=== PATIENT | female | born 1950 | race African-American/Black ===

== ENCOUNTER 2018-12-12 06:54 | Inpatient (IN) | payer MEDICARE, MEDICAID ==
[~2018-12-12] VITALS: Ht 162.6 cm; Wt 72.6 kg
[2018-12-12 08:21] LABS: CLARITY URINE CLEAR (CLEAR); COLOR URINE YELLOW (YELLOW)
[2018-12-12 08:22] LABS: KETONES URINE NEGATIVE (NEGATIVE); LEUKOCYTE ESTERASE URINE NEGATIVE (NEGATIVE); NITRITE URINE NEGATIVE (NEGATIVE); OCCULT BLOOD URINE NEGATIVE (NEGATIVE); PROTEIN URINE NEGATIVE (NEGATIVE); SPECIFIC GRAVITY URINE 1.022 (1.005-1.030)
[2018-12-12 08:24] LABS: CHLORIDE 105 mEq/L (98-107)
[2018-12-12] MEDS: LACTATED RINGERS 1,000 ML IV SCH (08:24)
[2018-12-12 08:26] LABS: PARTIAL THROMBOPLASTIN TIME 25.2 sec (23.4-31.0); PROTHROMBIN TIME 10.2 sec (9.6-11.0)
[2018-12-12 08:27] LABS: BASOPHILS % 0.5 % (0.0-2.0); EOSINOPHILS % 1.8 % (0.0-5.0); HEMATOCRIT. 33.1 % (36.0-48.0); HEMOGLOBIN. 11.5 g/dL (12.0-16.0); LYMPHOCYTES % 20.1 % (20.0-50.0); MEAN CORPUSCULAR HEMOGLOBIN 31.7 pg (28.0-32.0); MEAN CORPUSCULAR VOLUME 91.5 fL (81.0-99.0); MEAN PLATELET VOLUME 7.8 fl (7.4-10.4); MONOCYTES % 7.6 % (2.0-8.0); PLATELET 235 x1000/uL (130-400); RED BLOOD CELL COUNT 3.62 mill/uL (4.2-5.4); RED CELL DISTRIBUTION WIDTH 13.5 % (11.6-14.6)
[2018-12-12] MEDS ORDERED: TRANEXAMIC ACID 1,000 MG in SODIUM CHLORIDE 0.9% 100 ML IV NR ×2 (08:45→10:15)
[2018-12-12] MEDS ORDERED: BENA40TA9 PO (08:47)
[2018-12-12] MEDS ORDERED: ATEN-42 PO (08:47)
[2018-12-12] MEDS ORDERED: AMLO5TAB88 PO (08:47)
[2018-12-12] MEDS ORDERED: HYDR25TA PO (08:47)
[2018-12-12] MEDS ORDERED: TRANEXAMIC ACID 1,000 MG/10 ML IV ONE (10:15)
[2018-12-12] MEDS ORDERED: MORPHINE SULFATE/PF 1MG/ML 10ML AMP ONE (10:18)
[2018-12-12] MEDS ORDERED: BUPIVACAINE/EPINEPH/PF 0.25%/0.0005 10ML ONE (10:18)
[2018-12-12] MEDS ORDERED: METHYLENE BLUE 50 MG/10 ML AMP IV ONE (10:18)
[2018-12-12] MEDS ORDERED: EPINEPHRINE 1:1000 1 MG/ML AMP ONE (10:19)
[2018-12-12] MEDS ORDERED: NORMAL SALINE 0.9% 10 ML SYR ONE (10:19)
[2018-12-12] MEDS ORDERED: VANCOMYCIN HCL 500 MG/VIAL ONE (10:19)
[2018-12-12] MEDS ORDERED: BACITRACIN 50,000 UNITS/VIAL ONE (10:19)
[2018-12-12] MEDS ORDERED: SODIUM CHLORIDE 0.9% IRRIG SOL 3,000 ML IR ONE (10:19)
[2018-12-12] MEDS ORDERED: GENTAMICIN SULF 40MG/ML 2ML VIAL ONE (10:20)
[2018-12-12] MEDS ORDERED: MENT118G TP (10:30)
[2018-12-12] MEDS ORDERED: MELO-105 PO (10:30)
[2018-12-12] MEDS ORDERED: LOVA20TA2 PO (10:30)
[2018-12-12] MEDS ORDERED: ASPI-1393 PO (10:30)
[2018-12-12] MEDS ORDERED: FENTANYL CITRATE/PF 50MCG/ML 2ML VIAL ONE (11:32)
[2018-12-12] MEDS ORDERED: PROPOFOL 200MG/20ML VIAL IV ONE (11:33)
[2018-12-12] MEDS ORDERED: GLYCOPYRROLATE 0.2 MG/ML 2ML VIAL ONE ×2 (11:33→15:27)
[2018-12-12] MEDS ORDERED: NEOSTIGMINE METHYLSULFATE 1MG/ML 10 ML VIAL ONE (11:33)
[2018-12-12] MEDS ORDERED: ROCURONIUM BROMIDE 10MG/ML VIAL 5ML IV ONE (11:33)
[2018-12-12] MEDS ORDERED: MIDAZOLAM HCL 2 MG/2 ML VIAL ONE (11:33)
[2018-12-12] MEDS ORDERED: DEXAMETHASONE 4MG/ML 1ML VIAL ONE (11:52)
[2018-12-12] MEDS ORDERED: SODIUM CHLORIDE 0.9% 10ML VIAL ONE (11:53)
[2018-12-12] MEDS ORDERED: CEFAZOLIN SODIUM 1000MG/VIAL ONE (11:53)
[2018-12-12] MEDS ORDERED: ONDANSETRON HCL 4MG/2ML INJ IV PRN ×2 (12:15→18:00)
[2018-12-12] MEDS ORDERED: HYDROMORPHONE HCL/PF 2MG/ML CPJ IV PRN (12:15)
[2018-12-12] MEDS ORDERED: LABETALOL 5MG/ML SYR 20 MG/4 ML SYRINGE IV PRN (12:15)
[2018-12-12] MEDS ORDERED: MEPERIDINE HCL/PF 25MG/ML CPJ IV PRN (12:15)
[2018-12-12] MEDS ORDERED: NALOXONE INJ IV PRN (17:34)
[2018-12-12] MEDS ORDERED: DIPHENHYDRAMINE INJ IV PRN (17:34)
[2018-12-12] MEDS ORDERED: HYDROMORPHONE PCA 10MG/50ML IV PRN (17:34)
[2018-12-12] MEDS ORDERED: ONDANSETRON INJ IV PRN (17:34)
[2018-12-12] MEDS ORDERED: MAGNESIUM HYDROXIDE 400MG/5ML 30ML UDC PO PRN (18:00)
[2018-12-12] MEDS ORDERED: HYDROCODONE/ACETAMINOPHEN 5/325MG TABLET PO PRN ×2 (18:00)
[2018-12-12 20:00] VITALS: BP 119/71
[2018-12-12] MEDS ORDERED: ZOLPIDEM TARTRATE 5MG TABLET PO PRN (21:00)
[2018-12-12] MEDS: CEFAZOLIN 2,000 MG in DEXT 5% WATER 100 ML IV SCH (23:58)
[2018-12-13 06:36] LABS: HEMATOCRIT. 27.7 % (36.0-48.0); HEMOGLOBIN. 9.5 g/dL (12.0-16.0); MEAN CORPUSCULAR HEMOGLOBIN 31.7 pg (28.0-32.0); MEAN CORPUSCULAR VOLUME 92.4 fL (81.0-99.0); MEAN PLATELET VOLUME 8.3 fl (7.4-10.4); PLATELET 196 x1000/uL (130-400); RED CELL DISTRIBUTION WIDTH 12.9 % (11.6-14.6)
[2018-12-13] MEDS: CEFAZOLIN 2,000 MG in DEXT 5% WATER 100 ML IV SCH (06:57)
[2018-12-13 07:15] LABS: CHLORIDE 104 mEq/L (98-107)
[2018-12-13 08:00] VITALS: BP 97/47
[2018-12-13] MEDS: DOCUSATE SODIUM 100MG CAPSULE PO SCH ×2 (08:55→18:01)
[2018-12-13] MEDS: ENOXAPARIN 30MG/0.3ML SYR SUBCUT SCH ×2 (08:57→18:01)
[2018-12-13] MEDS ORDERED: POTASSIUM CHLORIDE 20MEQ TABLET SR PO SCH (10:00)
[2018-12-13 12:00] VITALS: BP 120/61
[2018-12-13] MEDS ORDERED: DIPHENHYDRAMINE INJ IV PRN (12:45)
[2018-12-13 12:54] LABS: PLATELET ESTIMATE NORMAL
[2018-12-13 16:00] VITALS: BP 129/67
[2018-12-13 20:00] VITALS: BP 133/58
[2018-12-13] MEDS: ACETAMINOPHEN 325MG TABLET PO PRN (23:21)
[2018-12-14] VITALS: BP 131/59
[2018-12-14 04:00] VITALS: BP 123/59
[2018-12-14 08:00] VITALS: BP 136/77
[2018-12-14 09:07] LABS: BASOPHILS % 0.1 % (0.0-2.0); EOSINOPHILS % 0.1 % (0.0-5.0); HEMATOCRIT. 24.6 % (36.0-48.0); HEMOGLOBIN. 8.5 g/dL (12.0-16.0); LYMPHOCYTES % 8.6 % (20.0-50.0); MEAN CORPUSCULAR HEMOGLOBIN 31.7 pg (28.0-32.0); MEAN CORPUSCULAR VOLUME 91.6 fL (81.0-99.0); MEAN PLATELET VOLUME 8.2 fl (7.4-10.4); MONOCYTES % 8.2 % (2.0-8.0); PLATELET 160 x1000/uL (130-400); RED BLOOD CELL COUNT 2.69 mill/uL (4.2-5.4)
[2018-12-14] MEDS: DOCUSATE SODIUM 100MG CAPSULE PO SCH ×2 (09:37→17:56)
[2018-12-14] MEDS: ENOXAPARIN 30MG/0.3ML SYR SUBCUT SCH (09:37)
[2018-12-14] MEDS ORDERED: HYDROCODONE/ACETAMINOPHEN 5/325MG TABLET PO PRN (09:45)
[2018-12-14 09:51] LABS: CHLORIDE 99 mEq/L (98-107)
[2018-12-14] MEDS: HYDROCHLOROTHIAZIDE 25MG TABLET PO SCH (10:00)
[2018-12-14] MEDS: AMLODIPINE 5MG TABLET PO SCH (10:00)
[2018-12-14] MEDS: ATENOLOL 25MG TABLET PO SCH (10:00)
[2018-12-14] MEDS: BENAZEPRIL 10MG TABLET PO SCH (10:00)
[2018-12-14] MEDS ORDERED: POTASSIUM CHLORIDE 20MEQ TABLET SR PO NR (11:31)
[2018-12-14 12:00] VITALS: BP 137/61
[2018-12-14] MEDS: HYDROCODONE/ACETAMINOPHEN 5/325MG TABLET PO PRN (14:37)
[2018-12-14 16:00] VITALS: BP 140/70
[2018-12-14 20:00] VITALS: BP 129/56
[2018-12-14] MEDS: ATORVASTATIN CALCIUM 20MG TABLET PO SCH (20:59)
[2018-12-15] VITALS: BP 126/49
[2018-12-15 04:00] VITALS: BP 134/61
[2018-12-15 07:36] LABS: BASOPHILS % 0.2 % (0.0-2.0); EOSINOPHILS % 0.1 % (0.0-5.0); HEMATOCRIT. 23.4 % (36.0-48.0); LYMPHOCYTES % 10.8 % (20.0-50.0); MEAN CORPUSCULAR HEMOGLOBIN 31.4 pg (28.0-32.0); MEAN CORPUSCULAR VOLUME 91.6 fL (81.0-99.0); MEAN PLATELET VOLUME 8.5 fl (7.4-10.4); MONOCYTES % 7.9 % (2.0-8.0); PLATELET 167 x1000/uL (130-400); RED BLOOD CELL COUNT 2.56 mill/uL (4.2-5.4); RED CELL DISTRIBUTION WIDTH 13.2 % (11.6-14.6)
[2018-12-15 08:00] VITALS: BP 113/56
[2018-12-15] MEDS: ATENOLOL 25MG TABLET PO SCH (09:12)
[2018-12-15] MEDS: AMLODIPINE 5MG TABLET PO SCH (09:12)
[2018-12-15] MEDS: BENAZEPRIL 10MG TABLET PO SCH ×2 (09:12→20:42)
[2018-12-15] MEDS: HYDROCHLOROTHIAZIDE 25MG TABLET PO SCH (09:12)
[2018-12-15] MEDS: DOCUSATE SODIUM 100MG CAPSULE PO SCH ×2 (09:12→17:27)
[2018-12-15] MEDS: HYDROCODONE/ACETAMINOPHEN 5/325MG TABLET PO PRN (10:15)
[2018-12-15] MEDS: LACTATED RINGERS 1,000 ML IV SCH (10:30)
[2018-12-15 11:48] VITALS: BP 105/48
[2018-12-15] MEDS: FERROUS SULFATE 325MG TABLET PO SCH ×2 (12:20→17:27)
[2018-12-15 16:00] VITALS: BP 94/45
[2018-12-15] MEDS: ACETAMINOPHEN 325MG TABLET PO PRN (17:27)
[2018-12-15] MEDS: SODIUM CHLORIDE 0.9% 1,000 ML IV SCH (17:28)
[2018-12-15 18:08] LABS: BASOPHILS % 0.3 % (0.0-2.0); EOSINOPHILS % 0.1 % (0.0-5.0); HEMOGLOBIN. 7.6 g/dL (12.0-16.0); LYMPHOCYTES % 12.7 % (20.0-50.0); MEAN CORPUSCULAR HEMOGLOBIN 31.4 pg (28.0-32.0); MEAN CORPUSCULAR VOLUME 91.5 fL (81.0-99.0); MEAN PLATELET VOLUME 8.6 fl (7.4-10.4); MONOCYTES % 8.7 % (2.0-8.0); NEUTROPHILS % 78.2 % (40.0-76.0); PLATELET 183 x1000/uL (130-400); RED BLOOD CELL COUNT 2.41 mill/uL (4.2-5.4); RED CELL DISTRIBUTION WIDTH 13.2 % (11.6-14.6)
[2018-12-15 20:00] VITALS: BP 106/59
[2018-12-15] MEDS: ATORVASTATIN CALCIUM 20MG TABLET PO SCH (20:41)
[2018-12-16] VITALS (12 sets, daily range): BP systolic 103–129; BP diastolic 44–60
[2018-12-16] MEDS: SODIUM CHLORIDE 0.9% 1,000 ML IV SCH (02:17)
[2018-12-16 07:38] LABS: BASOPHILS % 0.4 % (0.0-2.0); CHLORIDE 105 mEq/L (98-107); EOSINOPHILS % 0.4 % (0.0-5.0); HEMATOCRIT. 21.6 % (36.0-48.0); HEMOGLOBIN. 7.3 g/dL (12.0-16.0); LYMPHOCYTES % 13.7 % (20.0-50.0); MEAN CORPUSCULAR HEMOGLOBIN 31.2 pg (28.0-32.0); MEAN CORPUSCULAR VOLUME 91.7 fL (81.0-99.0); MEAN PLATELET VOLUME 8.7 fl (7.4-10.4); MONOCYTES % 7.8 % (2.0-8.0); NEUTROPHILS % 77.7 % (40.0-76.0); PLATELET 166 x1000/uL (130-400); RED BLOOD CELL COUNT 2.35 mill/uL (4.2-5.4); RED CELL DISTRIBUTION WIDTH 13.1 % (11.6-14.6)
[2018-12-16] MEDS: HYDROCHLOROTHIAZIDE 25MG TABLET PO SCH ×2 (09:00→09:10)
[2018-12-16] MEDS ORDERED: POTASSIUM CHLORIDE 20MEQ TABLET SR PO SCH (09:00)
[2018-12-16] MEDS: BENAZEPRIL 10MG TABLET PO SCH ×2 (09:00→20:41)
[2018-12-16] MEDS: DOCUSATE SODIUM 100MG CAPSULE PO SCH ×2 (09:10→17:29)
[2018-12-16] MEDS: ACETAMINOPHEN 325MG TABLET PO PRN ×2 (09:10→20:27)
[2018-12-16] MEDS: FERROUS SULFATE 325MG TABLET PO SCH ×3 (09:12→17:29)
[2018-12-16 09:54] LABS: TOTAL IRON BINDING CAPACITY 159 ug/dL (250-450)
[2018-12-16] MEDS: ATORVASTATIN CALCIUM 20MG TABLET PO SCH (20:27)
[2018-12-17] VITALS: BP 113/56
[2018-12-17 00:36] LABS: BASOPHILS % 0.5 % (0.0-2.0); HEMATOCRIT. 24.2 % (36.0-48.0); HEMOGLOBIN. 8.4 g/dL (12.0-16.0); LYMPHOCYTES % 15.9 % (20.0-50.0); MEAN CORPUSCULAR HEMOGLOBIN 31.4 pg (28.0-32.0); MEAN PLATELET VOLUME 7.9 fl (7.4-10.4); MONOCYTES % 9.6 % (2.0-8.0); PLATELET 173 x1000/uL (130-400); RED BLOOD CELL COUNT 2.66 mill/uL (4.2-5.4); RED CELL DISTRIBUTION WIDTH 13.7 % (11.6-14.6)
[2018-12-17 04:00] VITALS: BP 118/58
[2018-12-17 06:41] LABS: CHLORIDE 108 mEq/L (98-107)
[2018-12-17 06:44] LABS: BASOPHILS % 0.3 % (0.0-2.0); EOSINOPHILS % 0.9 % (0.0-5.0); HEMATOCRIT. 24.1 % (36.0-48.0); HEMOGLOBIN. 8.4 g/dL (12.0-16.0); LYMPHOCYTES % 16.6 % (20.0-50.0); MEAN CORPUSCULAR HEMOGLOBIN 31.5 pg (28.0-32.0); MEAN CORPUSCULAR VOLUME 90.9 fL (81.0-99.0); MEAN PLATELET VOLUME 8.4 fl (7.4-10.4); MONOCYTES % 9.1 % (2.0-8.0); NEUTROPHILS % 73.1 % (40.0-76.0); PLATELET 185 x1000/uL (130-400); RED BLOOD CELL COUNT 2.65 mill/uL (4.2-5.4); RED CELL DISTRIBUTION WIDTH 13.7 % (11.6-14.6)
[2018-12-17 08:00] VITALS: BP 127/55
[2018-12-17] MEDS: BENAZEPRIL 10MG TABLET PO SCH ×2 (09:00→21:23)
[2018-12-17] MEDS: HYDROCHLOROTHIAZIDE 25MG TABLET PO SCH (09:00)
[2018-12-17] MEDS: FERROUS SULFATE 325MG TABLET PO SCH ×3 (09:24→17:27)
[2018-12-17] MEDS: DOCUSATE SODIUM 100MG CAPSULE PO SCH ×2 (09:24→17:27)
[2018-12-17] MEDS: ACETAMINOPHEN 325MG TABLET PO PRN (09:24)
[2018-12-17 12:00] VITALS: BP 138/57
[2018-12-17] MEDS: SODIUM CHLORIDE 0.9% 1,000 ML IV SCH ×2 (12:30→22:58)
[2018-12-17 20:00] VITALS: BP 144/58
[2018-12-17] MEDS: ATORVASTATIN CALCIUM 20MG TABLET PO SCH (21:23)
[2018-12-18] VITALS: BP 125/53
[2018-12-18 04:00] VITALS: BP 129/60
[2018-12-18 06:58] LABS: CHLORIDE 107 mEq/L (98-107)
[2018-12-18 07:17] LABS: BASOPHILS % 0.3 % (0.0-2.0); EOSINOPHILS % 0.8 % (0.0-5.0); HEMATOCRIT. 25.6 % (36.0-48.0); HEMOGLOBIN. 8.8 g/dL (12.0-16.0); LYMPHOCYTES % 13.7 % (20.0-50.0); MEAN CORPUSCULAR HEMOGLOBIN 31.5 pg (28.0-32.0); MEAN CORPUSCULAR VOLUME 91.8 fL (81.0-99.0); MEAN PLATELET VOLUME 8.4 fl (7.4-10.4); MONOCYTES % 7.8 % (2.0-8.0); NEUTROPHILS % 77.4 % (40.0-76.0); PLATELET 185 x1000/uL (130-400); RED BLOOD CELL COUNT 2.78 mill/uL (4.2-5.4); RED CELL DISTRIBUTION WIDTH 13.7 % (11.6-14.6)
[2018-12-18 08:00] VITALS: BP 130/61
[2018-12-18] MEDS: ACETAMINOPHEN 325MG TABLET PO PRN (08:52)
[2018-12-18] MEDS ORDERED: ASPIRIN 325MG EC TABLET PO SCH (09:00)
[2018-12-18] MEDS: DOCUSATE SODIUM 100MG CAPSULE PO SCH (10:54)
[2018-12-18] MEDS: BENAZEPRIL 10MG TABLET PO SCH (10:55)
[2018-12-18] MEDS: FERROUS SULFATE 325MG TABLET PO SCH (10:55)
[2018-12-18] MEDS: HYDROCHLOROTHIAZIDE 25MG TABLET PO SCH (10:55)
[2018-12-18 11:15] VITALS: BP 130/61
== END 2018-12-18 12:04 | disposition home health service (06) | DRG 470 ==
LOC: OR 06:54 → 6EST 21:41
PROVIDERS: ADMIT Internal Medicine; ATTEND Internal Medicine
PROC: 0SRC0J9 Replacement of Right Knee Joint with Synthetic Substitute, Cemented, Open Approach (ICD-10-PCS; principal; 2018-12-12)
PROC: 30233N1 Transfusion of Nonautologous Red Blood Cells into Peripheral Vein, Percutaneous Approach (ICD-10-PCS; 2018-12-16)
DX: M17.11 Unilateral primary osteoarthritis, right knee (principal); D62 Acute posthemorrhagic anemia; D72.821 Monocytosis (symptomatic); E66.9 Obesity, unspecified; E78.5 Hyperlipidemia, unspecified; Z68.27 Body mass index [BMI] 27.0-27.9, adult; E87.6 Hypokalemia; H40.9 Unspecified glaucoma; I10 Essential (primary) hypertension; H54.62 Unqualified visual loss, left eye, normal vision right eye; M65.9 Synovitis and tenosynovitis, unspecified; D69.6 Thrombocytopenia, unspecified; Z91.19 Patient's noncompliance with other medical treatment and regimen; M21.00 Valgus deformity, not elsewhere classified, unspecified site; I95.1 Orthostatic hypotension; M25.761 Osteophyte, right knee
CPT/HCPCS: 36415; 73560; 80048; 82270; 82728; 83540; 83550; 84145; 85384; 86850; 86900; 86920; 88305; 88311; 93971; 94002; 97110; 97116; 97162; 97166; 97530; C1713; C1776; J0171; J0690; J1100; J1170; J1200; J1580; J1650; J2250; J2274; J2405; J2704; J2710; J3010; J3370; J3490; J7030; J7050; J7060; L1830; P9016; Q9968

== ENCOUNTER 2019-01-03 11:39 | Emergency (ER) | payer MEDICARE, MEDICAID ==
[~2019-01-03] VITALS: Ht 162.6 cm; Wt 81.0 kg
[~2019-01-03 11:39] MED LIST: AMLO5TAB88 PO; ATEN-42 PO; BENA40TA9 PO; HYDR25TA PO; LOVA20TA2 PO; MELO-105 PO; MENT118G TP
[2019-01-03 15:31] LABS: BASOPHILS % 0.4 % (0.0-2.0); EOSINOPHILS % 2.1 % (0.0-5.0); HEMATOCRIT. 28.9 % (36.0-48.0); HEMOGLOBIN. 9.5 g/dL (12.0-16.0); LYMPHOCYTES % 17.2 % (20.0-50.0); MEAN CORPUSCULAR HEMOGLOBIN 30.2 pg (28.0-32.0); MEAN CORPUSCULAR VOLUME 91.6 fL (81.0-99.0); NEUTROPHILS % 70.3 % (40.0-76.0); PLATELET 288 x1000/uL (130-400); RED BLOOD CELL COUNT 3.15 mill/uL (4.2-5.4)
[2019-01-03 15:36] LABS: INR 1.1; PROTHROMBIN TIME 11.4 sec (9.6-11.0)
[2019-01-03 15:38] LABS: CHLORIDE 108 mEq/L (98-107)
[2019-01-03 16:25] VITALS: BP 153/71
== END 2019-01-03 16:25 | disposition home or self-care (01) ==
LOC: ER 11:39
DX: M79.89 Other specified soft tissue disorders (principal); D64.9 Anemia, unspecified
CPT/HCPCS: 36415; 80048; 93970; 99284

== ENCOUNTER → 2024-08-13 | Day surgery (SDC) | payer MEDICARE, MEDICAID ==
[~2024-08-13] VITALS: Ht 162.6 cm; Wt 57.6 kg
[~2024-08-13] MED LIST changes: +ACETAMINOPHEN 1000MG/100ML 100 ML IV ONE; +ASPI-1497 PO; -BENA40TA9 PO; +BENA40TA91 PO; +HYDROMORPHONE HCL/PF 1MG/ML INJ IV PRN; +IPRATROPIUM/ALBUTEROL 0.5-3(2.5)MG/3ML NEB HHN PRN; +LABETALOL 5MG/ML 4ML INJ IV PRN; +MEPERIDINE HCL/PF 25MG/ML CPJ IV PRN; +METHYLENE BLUE 50MG/10ML AMP IV ONE; +NALOXONE HCL 0.4MG/ML 1ML VIAL IV PRN; +ONDANSETRON HCL 4MG/2ML INJ IV PRN; +POLYMYXIN B SULFATE 500000 UNITS/VIAL ONE; +PROPOFOL 200MG/20ML VIAL IV ONE
[2024-08-13] MEDS: LACTATED RINGERS 1,000 ML IV SCH (06:41)
[2024-08-13 14:24] VITALS: BP 140/58; PULSE 72; RESP 14
[2024-08-13] MEDS: KETOROLAC 15MG/ML VIAL IV NR (14:24)
== END | disposition home or self-care (01) ==
LOC: OR 05:34
PROVIDERS: ATTEND Specialist
DX: D24.1 Benign neoplasm of right breast (principal); R59.0 Localized enlarged lymph nodes; I10 Essential (primary) hypertension; E78.5 Hyperlipidemia, unspecified; M19.90 Unspecified osteoarthritis, unspecified site; Z79.82 Long term (current) use of aspirin; Z79.899 Other long term (current) drug therapy; Z98.890 Other specified postprocedural states
CPT/HCPCS: 38525; 19301; 88305; 88307; 78195; J1885; J0131; A9541; Q9968; J3490; J2704